=== PATIENT | female | born 1995 | race American Indian/Alaskan Native ===

== ENCOUNTER 2017-11-20 11:42 | Emergency (ER) | payer SELFPAY ==
[2017-11-20 12:00] VITALS: BP 119/80
--- NOTE | 2017-11-20 13:49 | Emergency Department Report ---
Chief Complaint: Urogenital-Female Stated Complaint: VAGINAL BLEEDING Time Seen by Provider: 11/20/17 13:42 - HPI History of Present Illness: The patient's 22-year-old female presents for evaluation of vaginal discharge. The patient reports thick white vaginal discharge and vaginal irritation since last night. She says that she engaged in unprotected sexual intercourse 3 days ago. She reports a history of BV. The patient denies fever, chills, night sweats, abdominal pain, dysuria, hematuria, dyspareunia, vaginal bleeding. - Exam Vital Signs: Vital Signs 11/20/17 11:56 Temperature 98.8 F Pulse Rate 101 H Respiratory 20 Rate Blood Pressure 119/80 O2 Sat by Pulse 98 Oximetry MSE screening note: Focused history and physical exam performed. Due to findings the following was ordered: ED Disposition for MSE Condition: Stable
--- NOTE | 2017-11-20 13:52 | Emergency Department Report ---
ED Female HPI - General Chief complaint: Urogenital-Female Stated complaint: VAGINAL BLEEDING Time Seen by Provider: 11/20/17 13:42 Source: patient Mode of arrival: Ambulatory Limitations: No Limitations - History of Present Illness Initial comments: Patient here reports that she has then the symptoms of bacterial vaginosis. Reported vaginal irritation for 3 days. Report vaginal discharge that is clear. Reports possible STD. Reports some pelvic cramping on and off that he ate at a 10. Denies any back pain. Reports some urinary urgency and burning MD Complaint: vaginal discharge, dysuria, pelvic pain, possible STD - Related Data Previous Rx's Medication Instructions Recorded Last Taken Type Sulfamethoxazole/Trimethoprim 1 each PO BID 7 Days #14 tablet 11/20/17 Unknown Rx [Bactrim DS TAB] metroNIDAZOLE [Flagyl] 500 mg PO Q12HR 7 Days #14 tab 11/20/17 Unknown Rx Allergies Allergy/AdvReac Type Severity Reaction Status Date / Time No Known Allergies Allergy Unverified 10/27/13 19:43 ED Review of Systems ROS: Stated complaint: VAGINAL BLEEDING Other details as noted in HPI ED Past Medical Hx - Past Medical History Previous Medical History?: No - Surgical History Past Surgical History?: No - Social History Smoking Status: Never Smoker Substance Use Type: Non Opiate Pain, Other - Medications Home Medications: Home Medications Medication Instructions Recorded Confirmed Last Taken Type Sulfamethoxazole/Trimethoprim 1 each PO BID 7 Days #14 tablet 11/20/17 Unknown Rx [Bactrim DS TAB] metroNIDAZOLE [Flagyl] 500 mg PO Q12HR 7 Days #14 tab 11/20/17 Unknown Rx ED Physical Exam - General Limitations: No Limitations ED Course Vital Signs 11/20/17 11:56 Temperature 98.8 F Pulse Rate 101 H Respiratory 20 Rate Blood Pressure 119/80 O2 Sat by Pulse 98 Oximetry ED Medical Decision Making - Lab Data Lab Results 11/20/17 Range/Units 13:43 Urine Color Yellow (Yellow) Urine Turbidity Clear (Clear) Urine pH 5.0 (5.0-7.0) Ur Specific [place] 1.024 (1.003-1.030) Urine Protein <15 mg/dl (Negative) mg/dL Urine Glucose (UA) Neg (Negative) mg/dL Urine Ketones Neg (Negative) mg/dL Urine Blood Neg (Negative) Urine Nitrite Neg (Negative) Ur Reducing Substances Not Reportable Urine Bilirubin Neg (Negative) Urine Ictotest Not Reportable Urine Urobilinogen < 2.0 (<2.0) mg/dL Ur Leukocyte Esterase Lg (Negative) Urine WBC (Auto) 31.0 H (0.0-6.0) /HPF Urine RBC (Auto) 7.0 (0.0-6.0) /HPF U Epithel Cells (Auto) 11.0 (0-13.0) /HPF Urine Bacteria (Auto) 1+ (Negative) /HPF Urine Mucus 2+ /HPF Urine HCG, Qual Negative (Negative) Urine culture pending Wet prep positive for bacterial vaginosis, negative troponin and negative yeast CHL pending - Medical Decision Making ED course: Patient here to be treated for STD and with complaints of vaginal discharge with some pelvic cramping. Physical findings a pelvic exam shows large amount of yellow discharge in vaginal vault and cervix. She has no CMT or no adnexal tenderness. Laboratory findings positive for bacterial vaginosis negative for trichomoniasis and yeast and positive UTI. Gonorrhea and chlamydia pending and urine culture pending. Patient was given option to be treated empirically in emergency room from the narcotic and chlamydia ordered to wait for lab results and she chose to be treated. Patient was given Rocephin 250 mg IM and azithromycin 1 g by mouth to treat gonorrhea and chlamydia with no adverse reaction. I discussed lab results and treatment plan with her. She voiced understanding of need to follow-up at [facility] in 7-10 days for repeat testing and also to tell her partner that she was treated for gonorrhea and chlamydia and also other STD in emergency room. Patient discharged home with prescription for Flagyl and Bactrim DS. Critical care attestation.: If time is entered above; I have spent that time in minutes in the direct care of this critically ill patient, excluding procedure time. ED Disposition Clinical Impression: Vaginal discharge, Bacterial vaginosis, Concern about STD in female without diagnosis Acute cystitis Qualifiers: Hematuria presence: without hematuria Qualified Code(s): N30.00 - Acute cystitis without hematuria Disposition: TO HOME OR SELFCARE Is pt being admited?: No Does the pt Need Aspirin: No Condition: Stable Instructions: Bacterial Vaginosis (ED), Sexually Transmitted Diseases (ED), Safe Sex (ED), Urinary Tract Infection in Women (ED) Additional Instructions: Please practice safe sex Follow-up with [facility] for primary care and [facility] You were treated gonorrhea and chlamydia in emergency room. You have a urinary tract infection and will be treated with Bactrim DS for 7 days. Please do not have any sexual activity for the next 2 weeks. test was negative. Please you partner that you're treated for STD in emergency room Prescriptions: metroNIDAZOLE [Flagyl] 500 mg PO Q12HR 7 Days #14 tab Sulfamethoxazole/Trimethoprim [Bactrim DS TAB] 1 each PO BID 7 Days #14 tablet Referrals: [facility] [Outside] - 7-10 days [facility] [Outside] - 7-10 days Forms: STI Treatment and Prevention, Work/School Release Form(ED)
[2017-11-20 14:10] LABS: HCG Qualitative,Urine Negative (Negative)
[2017-11-20 14:16] LABS: Bilirubin,Urine NEG (Negative); Color,Urine Yellow (Yellow)
[2017-11-20 14:17] LABS: Bacteria,Urine 1+ /HPF (Negative); Blood,Urine NEG (Negative); Mucus,Urine 2+ /HPF; Protein,Urine <15 mg/dL mg/dL (Negative); Urobilinogen,Urine < 2.0 mg/dL (<2.0)
[2017-11-20] MEDS ORDERED: FLAGYL PO ONE (16:09)
[2017-11-20] MEDS ORDERED: TYLENOL PO ONE (16:09)
[2017-11-20] MEDS ORDERED: ZITHROMAX PO ONE (16:10)
[2017-11-20] MEDS ORDERED: ROCEPHIN IM ONE (16:10)
[2017-11-20] MEDS ORDERED: XYLOCAINE 1% MPF 5 mL INFILTRATI ONE (16:10)
== END 2017-11-20 17:37 | disposition home or self-care (01) ==
LOC: ED 11:42
DX: N30.00 Acute cystitis without hematuria (principal); N76.0 Acute vaginitis
CPT/HCPCS: 81001; 81025; 87086; 87210; 87591; 96372; 99284; J0696

== ENCOUNTER 2017-12-06 11:11 | Emergency (ER) | payer OTHER ==
[2017-12-06 12:02] VITALS: BP 106/68
[2017-12-06 13:04] LABS: Bacteria,Urine 1+ /HPF (Negative); Bilirubin,Urine NEG (Negative); Blood,Urine NEG (Negative); Color,Urine Yellow (Yellow); HCG Qualitative,Urine Negative (Negative); Mucus,Urine 1+ /HPF; Protein,Urine <15 mg/dL mg/dL (Negative); Urobilinogen,Urine < 2.0 mg/dL (<2.0)
[2017-12-06] MEDS ORDERED: DIFLUCAN PO ONE (14:26)
--- NOTE | 2017-12-06 14:35 | Emergency Department Report ---
ED General Adult HPI - General Chief complaint: Urogenital-Female Stated complaint: PAIN WITH URINATION Time Seen by Provider: 12/06/17 14:26 Source: patient Mode of arrival: Ambulatory Limitations: No Limitations - History of Present Illness Initial comments: Patient is a 22-year-old female no significant past medical history who presents with vaginal discharge has been going on for the last couple days. Patient states vaginal discharge occurred after she was given an antibiotic for urinary tract infection. He has been gone for the last couple days. She states that she has vaginal itching which is moderate scratching makes it better nothing makes it worse. Patient also noticed that she had some white discharge. - Related Data Previous Rx's Medication Instructions Recorded Last Taken Type Sulfamethoxazole/Trimethoprim 1 each PO BID 7 Days #14 tablet 11/20/17 Unknown Rx [Bactrim DS TAB] metroNIDAZOLE [Flagyl] 500 mg PO Q12HR 7 Days #14 tab 11/20/17 Unknown Rx Allergies Allergy/AdvReac Type Severity Reaction Status Date / Time No Known Allergies Allergy Unverified 10/27/13 19:43 ED Review of Systems ROS: Stated complaint: PAIN WITH URINATION Other details as noted in HPI Constitutional: denies: chills, fever Eyes: denies: eye pain, eye discharge, vision change ENT: denies: ear pain, throat pain Respiratory: denies: cough, shortness of breath, wheezing Cardiovascular: denies: chest pain, palpitations Endocrine: no symptoms reported Gastrointestinal: denies: abdominal pain, nausea, diarrhea Genitourinary: discharge Musculoskeletal: denies: back pain, joint swelling, arthralgia Skin: denies: rash, lesions Neurological: denies: headache, weakness, paresthesias Psychiatric: denies: anxiety, depression Hematological/Lymphatic: denies: easy bleeding, easy bruising ED Past Medical Hx - Past Medical History Previous Medical History?: Yes Additional medical history: UTI - Surgical History Past Surgical History?: No - Social History Smoking Status: Never Smoker Substance Use Type: None - Medications Home Medications: Home Medications Medication Instructions Recorded Confirmed Last Taken Type Sulfamethoxazole/Trimethoprim 1 each PO BID 7 Days #14 tablet 11/20/17 Unknown Rx [Bactrim DS TAB] metroNIDAZOLE [Flagyl] 500 mg PO Q12HR 7 Days #14 tab 11/20/17 Unknown Rx ED Physical Exam - General Limitations: No Limitations General appearance: alert, in no apparent distress - Head Head exam: Present: atraumatic, normocephalic - Eye Eye exam: Present: normal appearance - ENT ENT exam: Present: mucous membranes moist - Neck Neck exam: Present: normal inspection - Respiratory Respiratory exam: Present: normal lung sounds bilaterally. Absent: respiratory distress - Cardiovascular Cardiovascular Exam: Present: regular rate, normal rhythm. Absent: systolic murmur, diastolic murmur, rubs, gallop - GI/Abdominal GI/Abdominal exam: Present: soft, normal bowel sounds - Extremities Exam Extremities exam: Present: normal inspection - Back Exam Back exam: Present: normal inspection - Neurological Exam Neurological exam: Present: alert, oriented X3 - Psychiatric Psychiatric exam: Present: normal affect, normal mood - Skin Skin exam: Present: warm, dry, intact, normal color. Absent: rash ED Course Vital Signs 12/06/17 11:59 Temperature 98.4 F Pulse Rate 100 H Respiratory 20 Rate Blood Pressure 106/68 O2 Sat by Pulse 99 Oximetry ED Medical Decision Making - Medical Decision Making Chief medical diagnosis: Yeast infection Differential medical diagnosis: Urethral candidia infection, Bacterial overgrowth. I will give patient diflucan and I will send patient home. Discussed plan with patient and patient agrees additional verbal discharge instructions were given. Critical care attestation.: If time is entered above; I have spent that time in minutes in the direct care of this critically ill patient, excluding procedure time. ED Disposition Clinical Impression: Yeast cystitis Disposition: DC-01 TO HOME OR SELFCARE Is pt being admited?: No Does the pt Need Aspirin: No Condition: Stable Instructions: Vulvovaginal Candidiasis (ED) Referrals: RODERICK MOSQUERA MD [Staff Physician] - 3-5 Days
== END 2017-12-06 14:48 | disposition home or self-care (01) ==
LOC: ED 11:11
DX: N30.90 Cystitis, unspecified without hematuria (principal)
CPT/HCPCS: 81001; 81025